=== PATIENT | male | born 1990 | race Caucasian/White ===

== ENCOUNTER 2018-02-07 19:05 | Emergency (ER) | payer BC ==
[~2018-02-07] VITALS: Ht 182.9 cm; Wt 100.0 kg
[2018-02-07 19:12] VITALS: BP 149/97; TEMP 98.1
[2018-02-07] MEDS ORDERED: FLEXERIL5 MG PO (20:07)
[2018-02-07 20:10] LABS: COLLECTION METHOD CLEAN CATCH
[2018-02-07 20:19] LABS: MUCOUS Present /lpf; PH 6 (5-8); SQUAMOUS EPITHELIAL 0-2 /hpf; URINE APPEARANCE Clear; URINE BACTERIA None Seen /hpf; URINE BILIRUBIN Negative (NEGATIVE); URINE BLOOD Negative (NEGATIVE); URINE CALCIUM OXALATE CRYSTAL Present /hpf; URINE COLOR Yellow; URINE GLUCOSE Negative (NEGATIVE); URINE KETONE Negative (NEGATIVE); URINE LEUKOCYTE ESTERASE Negative (NEGATIVE); URINE NITRATE Negative (NEGATIVE); URINE PROTEIN(semi-quant) Negative (NEGATIVE); URINE RBC 0-2 /hpf; URINE UROBILINOGEN Negative (NEGATIVE)
[2018-02-07] MEDS ORDERED: NORCO 325 MG-7.1 TAB PO (20:50)
[2018-02-07 21:12] VITALS: PULSE 80
== END 2018-02-07 21:12 | disposition home or self-care (01) ==
LOC: COL.ER 19:05
PROVIDERS: Nurse Practitioner
DX: M54.17 Radiculopathy, lumbosacral region (principal); F12.90 Cannabis use, unspecified, uncomplicated
CPT/HCPCS: J1170; J2360